=== PATIENT | male | born 1975 | race Caucasian/White ===

== ENCOUNTER 2020-07-09 15:46 | Emergency (ER) | payer OTHER ==
[~2020-07-09] VITALS: Ht 182.9 cm; Wt 108.9 kg
== END 2020-07-09 17:05 | disposition home or self-care (01) ==
LOC: ED 15:46
DX: S60.221A Contusion of right hand, initial encounter (principal); W22.8XXA Striking against or struck by other objects, initial encounter
CPT/HCPCS: 73130; 99283-25